=== PATIENT | male | born 1975 | race Two or more races ===

== ENCOUNTER 2024-04-23 18:08 | Emergency (ER) | payer OTHER ==
[~2024-04-23] VITALS: Ht 180.3 cm; Wt 103.9 kg
[2024-04-23 18:40] VITALS: TEMP 98.2
[2024-04-23] MEDS ORDERED: KETOROLAC TROMETHAMINE 15 MG/ML VIAL ONE ×2 (19:07→19:08)
[2024-04-23] MEDS ORDERED: HYDROCODONE/APAP 5/325MG TABLET ONE (19:08)
[2024-04-23 19:17] VITALS: BP 99/74; O2SAT 97
[2024-04-23] MEDS: HYDROCODONE/APAP 5/325MG TABLET PO ONE (19:24)
[2024-04-23] MEDS: KETOROLAC TROMETHAMINE 15 MG/ML VIAL IM ONE (19:26)
[2024-04-23] MEDS ORDERED: HYDR-4303 PO (19:59)
== END 2024-04-23 21:56 | disposition home or self-care (01) ==
LOC: ER 18:12
DX: S89.81XA Other specified injuries of right lower leg, initial encounter (principal); M25.461 Effusion, right knee; X50.1XXA Overexertion from prolonged static or awkward postures, initial encounter; Y93.89 Activity, other specified; Y92.89 Other specified places as the place of occurrence of the external cause; Y99.8 Other external cause status
CPT/HCPCS: 99283; 29505; 96372; 73564; J1885 ×2